=== PATIENT | female | born 1930 | race Caucasian/White ===

== ENCOUNTER → 2016-04-24 | Outpatient (CLI) | payer BC ==
[~2016-04-24] MED LIST: ASCA500 PO; ATV5 PO; AZIT500T26 PO; CHOL100027 PO; CLTP PO; CSPOPS OP; DORZ1SOL6 OPB; ESCI10TA17 PO; IVIG IV.; LATA0.009 OP; LATA0.5S OPB; LEVO-217 PO; LEVO75TA5 PO; LORA-741 PO; MULT-506 PO; MULTTAB58 PO; NAPR1TAB9 PO; OXYC1TAB3 PO; SENN-65 PO; [UNRECOGNIZED DRUG - OTHER] IV
[2016-04-24 14:35] LABS: BASO ABS # 0.04 K/uL (0-0.2); COMPLETE YES; HEMATOCRIT 31.8 % (37-47); IG% 0.3 %; LYMPH % 27.7 %; LYMPH ABS # 1.07 K/uL (1.2-3.4); MEAN CELL VOLUME 97.8 fL (80-100); MEAN CORPUSCULAR HEMOGLOBIN 33.2 pg (25-34); MEAN PLATELET VOLUME 9.4 fL (7.4-10.4); MONO % 25.9 %; NEUT % 45.1 %; PLATELET COUNT 139 K/uL (130-400); RED BLOOD COUNT 3.25 M/uL (4.2-5.4); WHITE BLOOD COUNT 3.86 K/uL (4.8-10.8)
[2016-04-24 15:12] LABS: ALT/SGPT 23 U/L (12-78); AST/SGOT 30 U/L (15-37); BLOOD UREA NITROGEN 16 mg/dl (7-18); BUN/CREATININE RATIO 23.9 (10-20); CALCIUM 9.8 mg/dl (8.5-10.1); CARBON DIOXIDE 26 mmol/L (21-32); CHLORIDE 105 mmol/L (98-107); CREATININE 0.68 mg/dl (0.60-1.20); GLUCOSE 96 mg/dl (70-99); POTASSIUM 3.9 mmol/L (3.5-5.1); SODIUM 140 mmol/L (136-145)
[2016-04-24 15:45] LABS: ALB/GLOB RATIO 0.7 (0.9-2); ALKALINE PHOSPHATASE 152 U/L (45-117); IMMUNOGLOBULN A < 7.8 mg/dL (70-400)
--- NOTE | 2016-04-28 11:37 | CODING QUERY NO DIAGNOSIS ---
: 1930 TREATMENT RENDERED WITHOUT A DIAGNOSIS To promote full compliance with coding requirements relating to patient care, physician participation is requested in all cases of stabilizing machine operator uncertainty. Please assist us with providing a diagnosis/symptom for the test(s) below: A diagnosis/symptom was not documented on your Order. A valid diagnosis/symptom is required to bill all insurances. Please remember that we are unable to code a diagnosis of rule out, probable, possible, questionable, or suspected. Tests that require a diagnosis: * CBC WITH AUTO DIFFER DOS: 04/24/16 DIAGNOSIS: * COMPREHENSIVE METABO DOS: 04/24/16 DIAGNOSIS: * IMMUNOGLOBULIN G,A,M DOS: 04/24/16 DIAGNOSIS: * LDH DOS: 04/24/16 DIAGNOSIS: Provider Signature: Date: Thank you Dana Mota Health Information Management Once completed, please kindly fax back to [phone] For questions please call [phone]
== END | disposition home or self-care (01) ==
LOC: C.LAB1850 13:02
PROVIDERS: ATTEND Internal Medicine Hematology & Oncology
DX: C88.0 Waldenstrom macroglobulinemia (principal)

== ENCOUNTER → 2016-07-17 | Outpatient (CLI) | payer BC ==
[2016-07-17 15:20] LABS: THYROID STIMULATING HORMONE 0.985 uIu/ml (0.300-4.500)
[2016-07-17 16:00] LABS: LYME DISEASE AB IGM NEG (NEG)
[2016-07-17 16:02] LABS: LYME DISEASE AB IGG NEG (NEG)
--- NOTE | 2016-07-21 14:25 | CODING QUERY MEDICAL NECESSITY ---
SUPPORTING DIAGNOSIS NEEDED A supporting diagnosis is required for the test/procedure performed on this patient in order for us to be reimbursed by the patient's insurance. Please provide a supporting diagnosis for the following test/procedure listed below next to the test name along with your signature. *If there is no additional diagnosis for this patient that would support the following test/procedure please document that below next to the test/procedure. Test(s)/Procedure(s) that require a supporting diagnosis: * VITAMIN D 25-HYDROXY DIAGNOSIS: * VITAMIN B-12 LEVEL DIAGNOSIS: * DOS: 07/17/16 Provider Signature: Date: Thank you Crystal Cobb Health Information Management Once completed, please kindly fax back to [phone] For questions please call [phone]
== END | disposition home or self-care (01) ==
LOC: C.LAB1850 13:41
PROVIDERS: ATTEND Internal Medicine
DX: R42 Dizziness and giddiness (principal); M62.81 Muscle weakness (generalized)

== ENCOUNTER → 2016-07-31 | Outpatient (CLI) | payer BC ==
--- NOTE | 2016-07-31 13:38 | DIAGNOSTIC IMAGING REPORT ---
Brain MRI WITHOUT CONTRAST HISTORY: Mental status change WALDENSTROM'S MACROGLOBULINEMIA TECHNIQUE: Multiplanar multisequence MRI of the brain was performed without the use of contrast. COMPARISON STUDY: 11/02/2009 FINDINGS: There are no areas of restricted diffusion to suggest acute infarction. The midline structures are intact. The paranasal sinuses are clear. The mastoid air cells are clear. The ventricles and sulci are within normal limits for age. There is no mass, hematoma, midline shift. The major vascular flow-voids at the skull base are well maintained. Foci of increased signal within the periventricular and deep white matter regions are stable. No significant postcontrast enhancement. IMPRESSION: Chronic change. Age-related change. No acute process. Electronically signed by: Tru Breaux M.D. 07/31/2016 1:36 PM Dictated Date/Time: 07/31/2016 1:31 PM
== END | disposition home or self-care (01) ==
LOC: C.OPENMRI 12:11
PROVIDERS: ATTEND Internal Medicine
DX: C88.0 Waldenstrom macroglobulinemia (principal)

== ENCOUNTER 2016-10-04 05:01 | Emergency (ER) | payer BC ==
[~2016-10-04] VITALS: Ht 165.1 cm; Wt 60.0 kg
[~2016-10-04 05:01] MED LIST changes: -AZIT500T26 PO; -DORZ1SOL6 OPB; -ESCI10TA17 PO; -LATA0.5S OPB; -LEVO75TA5 PO; -LORA-741 PO; -MULT-506 PO; -NAPR1TAB9 PO; -OXYC1TAB3 PO; -[UNRECOGNIZED DRUG - OTHER] IV
[2016-10-04 05:12] VITALS: TEMP 36.4; Ht 165.1 cm; Wt 60.0 kg
[2016-10-04] MEDS ORDERED: KETOROLAC TROMETHAMINE 30 MG/ML VIAL IV STA (05:41)
--- NOTE | 2016-10-04 05:48 | EMERGENCY ROOM VISIT NOTE ---
History Report prepared by Gopal: Joshua Sharif Under the Supervision of: Dr. Chanda Fitch D.O. First contact with patient: 05:02 Chief Complaint: HIP PAIN Stated Complaint: HIP PAIN History of Present Illness The patient is a 86 year old female who presents to the Emergency Room via EMS with complaints of severe right hip pain starting about 2 days ago and worsening tonight. She reports worsening pain with ambulation but has been walking on the leg. She rolled over in her bed tonight and had worsening of her pain soon after. She took Lorazepam and 2 Tylenol with some relief. She received 3 mg Morphine by EMS with some relief. She denies any recent falls. She had a hip replacement about 5-6 years ago. The patient denies chest pain, shortness of breath, abdominal pain, upper extremity pain, or any other complaints. She had routine blood work done yesterday as a part of Non-Hodgkin' s lymphoma treatment. Source of History: patient Onset: 2 days ago Position: other (right hip) Symptom Intensity: severe Timing: worsening Modifying Factors (Worsening): other (ambulation) Modifying Factors (Relieving): other (Lorazepam, 2 Tylenol, and Morphine with some relief) Associated Symptoms: No chest pain, No SOB, No abdominal pain Review of Systems See HPI for pertinent positives & negatives. A total of 10 systems reviewed and were otherwise negative. Past Medical & Surgical Surgical Problems: (1) History of right hip replacement Family History Patient reports no known family medical history. Social History Marital Status: Housing Status: lives with family Occupation Status: retired Current/Historical Medications Scheduled Ascorbic Acid (Vitamin C), 500 MG PO DAILY Azithromycin (Zithromax), 1,000 MG PO WK Dorzolamide Hcl-Timolol Maleat (Cosopt Oph), 1 DROPS OPB BID Escitalopram (Lexapro), 20 MG PO DAILY Latanoprost (Xalatan 0.005% Oph Opal), 1 DROPS OPB HS Levothyroxine Sodium (Levothyroxine Sodium), 1 TAB PO DAILY Multivitamin (Multivitamin), 1 TAB PO DAILY [human ig iv], 1 DOSE IV MONTHLY Scheduled PRN Lorazepam (Ativan), 1.5 TAB PO DAILY PRN for Anxiety Naproxen (Aleve), 220 MG PO BID PRN for Pain Oxycodone Ir (Roxicodone Ir), 1 TAB PO Q4H PRN for Severe Pain Allergies Coded Allergies: Iodinated Diagnostic Agents (Verified Allergy, Intermediate, HIVES, ) Physical Exam Vital Signs Date Time Temp Pulse Resp B/P (MAP) Pulse Ox O2 Delivery O2 Flow Rate FiO2 10/04/16 06:49 72 20 104/70 93 10/04/16 06:06 78 20 106/55 93 Room Air 10/04/16 05:12 36.4 74 20 142/62 98 Room Air Physical Exam HEENT: Head - normocephalic and atraumatic Pupils are equal, round, and reactive to light. Extraocular eye muscles are intact, and sclera are anicteric. Nose - moist nasal mucosa without discharge. Mouth - moist buccal mucosa. Oropharynx is nonerythematous and there is no tonsillar exudate or edema noted. Neck: Supple; no JVD, nuchal rigidity, cervical lymphadenopathy. Heart: Regular rate and rhythm. There is a normal S1 and S2 with no murmurs, clicks, or gallops appreciated. Lungs: Clear to auscultation bilaterally with no wheezes, rales, or rhonchi. Abdomen: Soft, completely nontender, nondistended, with good bowel sounds. There are no palpable pulsatile masses or hepatosplenomegaly. There is no guarding, rigidity, or rebound noted. Extremities: No evidence of cyanosis, clubbing, or edema. There are easily palpable peripheral pulses. Pain with palpation over the right buttocks and right hip. Patient can initiate flexion at the right hip but it is painful. Skin: Pale, warm and dry with good turgor and no rashes. Medical Decision & Procedures ER Provider Diagnostic Interpretation: X-ray results as stated below per interpretation by me: HIP X-RAY Hardware appears to be in good position, no obvious fracture. Medications Administered Medications (Trade) Dose Ordered Sig/Nabil Route Start Time Stop Time Status Last Admin Dose Admin Ketorolac Tromethamine (Toradol Inj) 30 mg NOW STAT IV 10/04/16 05:41 10/04/16 05:42 DC 10/04/16 05:45 30 MG Procedure Toradol Inj 30 mg IV ED Course 0502: Past medical records reviewed. The patient was evaluated in room B02. A complete history and physical exam was performed. The patient declined wanting anything more for pain at this time. She had morphine by EMS. She went for plain x-rays of the right hip as described above. 0536: I went over the x-ray results with the patient. She will do an ambulatory trial. 0541: Toradol Inj 30 mg IV 0634: Upon reevaluation, the patient is feeling better. I discussed findings and results with her. She verbalized agreement of the treatment plan. She was discharged home. Medical Decision The patient presents to the Emergency Room with complaints of right hip pain. Differential diagnosis includes but is not limited to hip fracture, prosthetic hip dislocation, dislocated hardware. Her labs from yesterday showed white blood cell count of 3.7, hemoglobin 11.1 which is baseline for her, glucose of 88, normal renal function and LFTs, albumin low at 3.2. I attest that I have personally reviewed the patient's current medication list. Blood Pressure Screening: Patient was found to have a slightly elevated blood pressure due to circumstances. I do not believe that the patient requires hypertension monitoring. The patient had plain x-rays of the right hip. There were no obvious fractures and hardware appears to be in good position. After some time, the patient was able to get up and ambulate. She continues to describe some discomfort but not as severe as it was. The patient was given a prescription for OxyIR to use every 6 hours as needed for pain. Of asked her to follow-up with Dr. Barahona with regards to the hip pain. Impression Primary Impression: Right hip pain Scribe Attestation The scribe's documentation has been prepared under my direction and personally reviewed by me in its entirety. I confirm that the note above accurately reflects all work, treatment, procedures, and medical decision making performed by me. Departure Information Dispostion Home / Self-Care Prescriptions Oxycodone Ir (Roxicodone Ir) 5 Mg Tab 1 TAB PO Q4H Y for Severe Pain, #20 TAB Prov: Chanda Fitch D.O. 10/04/16 Referrals Rafa Haque M.D. (PCP) Sami Barahona, DO Forms HOME CARE DOCUMENTATION FORM, IMPORTANT VISIT INFORMATION, WORK / SCHOOL INSTRUCTIONS Patient Instructions My [facility] Additional Instructions Rest. Limit ambulation. Follow up closely with Dr. Barahona. Use tylenol or motrin for pain
[2016-10-04] MEDS ORDERED: NAPR1TAB9 PO (06:36)
[2016-10-04] MEDS ORDERED: ESCI10TA17 PO (06:37)
[2016-10-04] MEDS ORDERED: AZIT500T26 PO (06:37)
[2016-10-04] MEDS ORDERED: DORZ1SOL6 OPB (06:37)
[2016-10-04] MEDS ORDERED: OXYC1TAB3 PO (06:40)
[2016-10-04] MEDS ORDERED: LEVO75TA5 PO (06:43)
[2016-10-04] MEDS ORDERED: [UNRECOGNIZED DRUG - OTHER] IV (06:43)
[2016-10-04] MEDS ORDERED: MULT-506 PO (06:45)
[2016-10-04] MEDS ORDERED: ASCA500 PO (06:45)
[2016-10-04] MEDS ORDERED: LORA-741 PO (06:46)
[2016-10-04] MEDS ORDERED: LATA0.5S OPB (06:46)
[2016-10-04 06:49] VITALS: BP 104/70; PULSE 72; O2SAT 93
--- NOTE | 2016-10-04 07:37 | DIAGNOSTIC IMAGING REPORT ---
RIGHT HIP 2 VIEWS CLINICAL HISTORY: Right hip pain. FINDINGS: AP and frog-leg portable views of the right hip are correlated with skeletal survey dated 07/06/2014. The skeletal structures are osteopenic. A bipolar right hip arthroplasty is in near anatomic alignment. There is no periprosthetic lucency identified. No fracture is seen. The visualized bony pelvis appears intact. The overlying soft tissues are within normal limits. Pelvic phleboliths are observed. IMPRESSION: There is no radiographic evidence of right hip fracture noting an arthroplasty in near anatomic alignment. Electronically signed by: Jay Barajas M.D. 10/04/2016 7:35 AM Dictated Date/Time: 10/04/2016 7:34 AM
== END 2016-10-04 06:49 | disposition home or self-care (01) ==
LOC: C.EDB 05:01 → EDBD 05:01 → C.EDB 06:49
DX: M25.551 Pain in right hip (principal); C85.90 Non-Hodgkin lymphoma, unspecified, unspecified site; Z96.641 Presence of right artificial hip joint

== ENCOUNTER → 2016-11-02 | Outpatient (CLI) | payer BC ==
[~2016-11-02] MED LIST changes: -ATV5 PO; +AZIT500T26 PO; -CHOL100027 PO; -CLTP PO; -CSPOPS OP; +DORZ1SOL6 OPB; +ESCI10TA17 PO; -IVIG IV.; -LATA0.009 OP; +LATA0.5S OPB; -LEVO-217 PO; +LEVO75TA5 PO; +LORA-741 PO; +MULT-506 PO; -MULTTAB58 PO; +NAPR1TAB9 PO; +OXYC1TAB3 PO; -SENN-65 PO; +[UNRECOGNIZED DRUG - OTHER] IV
[2016-11-02 15:34] LABS: BASO % 0.8 %; BASO ABS # 0.03 K/uL (0-0.2); COMPLETE YES; HEMATOCRIT 31.1 % (37-47); LYMPH % 29.7 %; LYMPH ABS # 1.13 K/uL (1.2-3.4); MEAN CORPUSCULAR HEMOGLOBIN 34.7 pg (25-34); MEAN PLATELET VOLUME 8.6 fL (7.4-10.4); MONO % 28.3 %; NEUT % 41.2 %; PLATELET COUNT 137 K/uL (130-400); RED BLOOD COUNT 3.14 M/uL (4.2-5.4); WHITE BLOOD COUNT 3.81 K/uL (4.8-10.8)
[2016-11-02 16:06] LABS: ALT/SGPT 25 U/L (12-78); BLOOD UREA NITROGEN 17 mg/dl (7-18); BUN/CREATININE RATIO 19.8 (10-20); CALCIUM 9.7 mg/dl (8.5-10.1); CARBON DIOXIDE 28 mmol/L (21-32); CHLORIDE 104 mmol/L (98-107); CREATININE 0.87 mg/dl (0.60-1.20); GLUCOSE 82 mg/dl (70-99); SODIUM 136 mmol/L (136-145)
[2016-11-02 16:38] LABS: ALB/GLOB RATIO 0.6 (0.9-2); ALKALINE PHOSPHATASE 158 U/L (45-117); AST/SGOT 35 U/L (15-37); IMMUNOGLOBULN A < 7.8 mg/dL (70-400)
[2016-11-06 16:36] LABS: ALBUMIN 3.6 G/DL (3.8-4.8); FREE KAPPA 168.5 MG/L (3.3-19.4); FREE KAPPA/LAMBDA RATIO 70.21 (0.26-1.65); FREE LAMBDA 2.4 MG/L (5.7-26.3); GAMMA GLOBULIN 2.4 G/DL (0.8-1.7); MONOCLONAL PROTEIN BAND 1 2.1 G/DL (NOT DETECTED); TOTAL PROTEIN 7.8 G/DL (6.2-8.3)
== END | disposition home or self-care (01) ==
LOC: C.LAB1850 14:38
PROVIDERS: ATTEND Internal Medicine Hematology & Oncology
DX: C88.0 Waldenstrom macroglobulinemia (principal)

== ENCOUNTER 2016-12-23 20:38 | Emergency (ER) | payer BC ==
[~2016-12-23] VITALS: Ht 165.1 cm; Wt 67.7 kg
[2016-12-23 20:51] VITALS: TEMP 37; Ht 165.1 cm; Wt 67.7 kg
[2016-12-23] MEDS ORDERED: MoRPHine SULFATE 4 MG/ML 1 ML CARP\\VIAL IV STA ×2 (21:06→22:23)
[2016-12-23 21:23] LABS: BASO % 0.6 %; BASO ABS # 0.02 K/uL (0-0.2); COMPLETE YES; HEMATOCRIT 29.8 % (37-47); IG% 0.6 %; LYMPH ABS # 1.12 K/uL (1.2-3.4); MEAN CELL VOLUME 94.3 fL (80-100); MEAN CORPUSCULAR HEMOGLOBIN 32.3 pg (25-34); MEAN CORPUSCULAR HGB CONC 34.2 g/dl (32-36); MEAN PLATELET VOLUME 8.8 fL (7.4-10.4); MONO % 20.4 %; NEUT % 44.4 %; PLATELET COUNT 137 K/uL (130-400); RED BLOOD COUNT 3.16 M/uL (4.2-5.4); WHITE BLOOD COUNT 3.29 K/uL (4.8-10.8)
[2016-12-23 21:32] LABS: PROTHROMBIN TIME (PATIENT) 10.7 SECONDS (9.0-12.0)
[2016-12-23 21:39] LABS: BUN/CREATININE RATIO 24.6 (10-20); CALCIUM 9.2 mg/dl (8.5-10.1); CREATININE 0.7 mg/dl (0.60-1.20); POTASSIUM 3.8 mmol/L (3.5-5.1)
--- NOTE | 2016-12-23 22:19 | DIAGNOSTIC IMAGING REPORT ---
LEFT PELVIS/UNILATERAL HIP 2-3VIEWS CLINICAL HISTORY: left hip pain trauma COMPARISON: None. DISCUSSION: Angled intertrochanteric fracture left hip. Possible additional subcapital fracture. Severe degenerative change left hip. There is no evidence for soft tissue swelling. IMPRESSION: 1. Angled intertrochanteric fracture left hip. 2. Potential partial subcapital fracture. 3. Severe degenerative change left hip. The above report was generated using voice recognition software. It may contain grammatical, syntax or spelling errors. Electronically signed by: Tru Breaux M.D. 12/23/2016 10:18 PM Dictated Date/Time: 12/23/2016 10:17 PM
--- NOTE | 2016-12-23 22:20 | DIAGNOSTIC IMAGING REPORT ---
CHEST ONE VIEW PORTABLE CLINICAL HISTORY: hip fx trauma COMPARISON STUDY: 02/26/2013 FINDINGS: Mild stable cardiomegaly. Lungs are clear. Minimal atelectasis left base. IMPRESSION: Mild cardiomegaly. Minimal atelectasis left base. The above report was generated using voice recognition software. It may contain grammatical, syntax or spelling errors. Electronically signed by: Tru Breaux M.D. 12/23/2016 10:18 PM Dictated Date/Time: 12/23/2016 10:18 PM
--- NOTE | 2016-12-23 22:49 | DIAGNOSTIC IMAGING REPORT ---
LEFT ELBOW MIN 3 VIEWS ROUTINE CLINICAL HISTORY: eval for fx trauma COMPARISON: None. DISCUSSION: The bones and joint spaces appear intact. There is no evidence of fracture, dislocation or bony disease. There is no evidence for soft tissue swelling. IMPRESSION: Negative study. The above report was generated using voice recognition software. It may contain grammatical, syntax or spelling errors. Electronically signed by: Tru Breaux M.D. 12/23/2016 10:47 PM Dictated Date/Time: 12/23/2016 10:45 PM
--- NOTE | 2016-12-23 23:01 | DIAGNOSTIC IMAGING REPORT ---
HEAD WITHOUT CONTRAST (CT) CT DOSE: 537.48 mGy.cm HISTORY: Mental status change. Trauma. eval for bleed TECHNIQUE: Multiaxial CT images of the head were performed without the use of intravenous contrast. A dose lowering technique was utilized adhering to the principles of ALARA. Comparison: None. Findings: Left-sided subdural hematoma. This is a maximum thickness of 1.2 cm. There is probably a very subtle midline shift to the right of 2 mm. There are findings of age-related chronic small vessel change. Basal cisterns are unremarkable. Osseous structures appear intact. Impression: 1. 1.2 cm left-sided subdural hematoma with less prominent findings seen towards the left frontal region 2. No significant parenchymal hemorrhage. 3. Slight midline shift to the right. The above report was generated using voice recognition software. It may contain grammatical, syntax or spelling errors. Electronically signed by: Tru Breaux M.D. 12/23/2016 11:00 PM Dictated Date/Time: 12/23/2016 10:56 PM
[2016-12-23 23:10] LABS: URINE APPEARANCE CLEAR (CLEAR); URINE BILIRUBIN NEG (NEG); URINE COLOR YELLOW; URINE EPITHELIAL CELL AUTO 20-30 /lpf (0-5); URINE NITRITE NEG (NEG); URINE PH 6.5 (4.5-7.5); URINE SPECIFIC GRAVITY 1.025 (1.000-1.030); UROBILINOGEN NEG (NEG); ZZURINE CULT IF INDIC CATH NO
[2016-12-23 23:17] LABS: MANUAL MICROSCOPIC REQUIRED? NO; REVIEW REQ? NO
[2016-12-23] MEDS ORDERED: HYDROmorphone INJ 1 MG/ML SYR IV STA (23:21)
[2016-12-23] MEDS ORDERED: HYDROmorphone INJ 0.5 MG/0.5 ML SYR ONE (23:25)
[2016-12-24 00:29] VITALS: BP 137/61; PULSE 87; O2SAT 94
--- NOTE | 2016-12-24 01:53 | EMERGENCY ROOM VISIT NOTE ---
History Report prepared by Gopal: Rik Kwan Under the Supervision of: Dr. Zay Davis M.D. First contact with patient: 20:51 Chief Complaint: FALL Stated Complaint: FALL/ LF HIP PAIN W/DEFORMITY History of Present Illness The patient is a 86 year old female who presents to the Emergency Room with complaints of a sudden fall that occurred prior to arrival. The patient rates her discomfort as an 8/10 in severity. She states that she was experiencing lightheadedness and lost her balance causing her to fall. The patient states that she fell on concrete floor hitting her left hip, elbow, and head. She denies any syncopal episode. Per nursing, the patient was brought into the ED via EMS and was given Fentanyl on her way here. The patient states that her orthopedics doctor is Dr. Barahona and PCP is Dr. Haque. She denies tripping, LOC, neck pain, head pain, and taking a blood thinner. Source of History: patient Onset: prior to arrival Position: leg (left) Symptom Intensity: 8/10 Quality: sharp Timing: other (sudden) Modifying Factors (Worsening): movement Modifying Factors (Relieving): other (Fentanyl) Associated Symptoms: No LOC, No headache, No neck pain Note: Associated symptom: lightheadedness Review of Systems See HPI for pertinent positives & negatives. A total of 10 systems reviewed and were otherwise negative. Past Medical & Surgical Surgical Problems: (1) History of right hip replacement Family History Patient reports no known family medical history. Social History Smoking Status: Never Smoker Marital Status: Housing Status: lives with family Occupation Status: retired Current/Historical Medications Scheduled Ascorbic Acid (Vitamin C), 500 MG PO DAILY Azithromycin (Zithromax), 500 MG PO TW Dorzolamide Hcl-Timolol Maleat (Cosopt Oph), 1 DROPS OPB BID Escitalopram (Lexapro), 20 MG PO DAILY Latanoprost (Xalatan 0.005% Oph Opal), 1 DROPS OPB HS Levothyroxine Sodium (Levothyroxine Sodium), 1 TAB PO DAILY Multivitamin (Multivitamin), 1 TAB PO DAILY [human ig iv], 1 DOSE IV MONTHLY Scheduled PRN Lorazepam (Ativan), 0.5 TAB PO HS PRN for Anxiety Naproxen (Aleve), 220 MG PO BID PRN for Pain Oxycodone Ir (Roxicodone Ir), 1 TAB PO Q4H PRN for Severe Pain Allergies Coded Allergies: Iodinated Diagnostic Agents (Verified Allergy, Intermediate, HIVES, 12/23/16 ) Physical Exam Vital Signs Date Time Temp Pulse Resp B/P (MAP) Pulse Ox O2 Delivery O2 Flow Rate FiO2 12/24/16 00:29 87 18 137/61 94 12/23/16 23:21 90 18 147/74 92 Room Air 12/23/16 22:31 87 20 157/76 93 Room Air 12/23/16 21:38 86 12/23/16 20:51 37.0 88 20 145/75 93 Room Air Physical Exam Constitutional: Vital signs reviewed. Eyes: Pupils are equal round reactive to light. Conjunctiva are noninjected. ENT: Pharynx is clear without erythema or exudate. Mucous membranes are moist. Neck supple without meningeal signs. No midline tenderness to C-Spine. Respiratory: Clear to auscultation bilaterally. Breath sounds are equal bilaterally. Cardiovascular: Regular rate and rhythm. No rubs or gallops. GI: Soft, nondistended and nontender. Bowel sounds are present. Musculoskeletal: Left hip tenderness. normal distal pulses. No tenderness to distal hip. Bruising to left elbow without bony tenderness to left arm. Integumentary: No cyanosis. Neurological: The patient is awake and alert. No focal deficits. Psychiatric: Normal affect. Medical Decision & Procedures ER Provider Diagnostic Interpretation: Radiology results as stated below per my review and the radiologist's interpretation: LEFT PELVIS/UNILATERAL HIP 2-3VIEWS CLINICAL HISTORY: left hip pain trauma COMPARISON: None. DISCUSSION: Angled intertrochanteric fracture left hip. Possible additional subcapital fracture. Severe degenerative change left hip. There is no evidence for soft tissue swelling. IMPRESSION: 1. Angled intertrochanteric fracture left hip. 2. Potential partial subcapital fracture. 3. Severe degenerative change left hip. The above report was generated using voice recognition software. It may contain grammatical, syntax or spelling errors. Electronically signed by: Tru Breaux M.D. 12/23/2016 10:18 PM Dictated Date/Time: 12/23/2016 10:17 PM CHEST ONE VIEW PORTABLE CLINICAL HISTORY: hip fx trauma COMPARISON STUDY: 02/26/2013 FINDINGS: Mild stable cardiomegaly. Lungs are clear. Minimal atelectasis left base. IMPRESSION: Mild cardiomegaly. Minimal atelectasis left base. The above report was generated using voice recognition software. It may contain grammatical, syntax or spelling errors. Electronically signed by: Tru Breaux M.D. 12/23/2016 10:18 PM Dictated Date/Time: 12/23/2016 10:18 PM HEAD WITHOUT CONTRAST (CT) CT DOSE: 537.48 mGy.cm HISTORY: Mental status change. Trauma. eval for bleed TECHNIQUE: Multiaxial CT images of the head were performed without the use of intravenous contrast. A dose lowering technique was utilized adhering to the principles of ALARA. Comparison: None. Findings: Left-sided subdural hematoma. This is a maximum thickness of 1.2 cm. There is probably a very subtle midline shift to the right of 2 mm. There are findings of age-related chronic small vessel change. Basal cisterns are unremarkable. Osseous structures appear intact. Impression: 1. 1.2 cm left-sided subdural hematoma with less prominent findings seen towards the left frontal region 2. No significant parenchymal hemorrhage. 3. Slight midline shift to the right. The above report was generated using voice recognition software. It may contain grammatical, syntax or spelling errors. Electronically signed by: Tru Breaux M.D. 12/23/2016 11:00 PM Dictated Date/Time: 12/23/2016 10:56 PM LEFT ELBOW MIN 3 VIEWS ROUTINE CLINICAL HISTORY: eval for fx trauma COMPARISON: None. DISCUSSION: The bones and joint spaces appear intact. There is no evidence of fracture, dislocation or bony disease. There is no evidence for soft tissue swelling. IMPRESSION: Negative study. The above report was generated using voice recognition software. It may contain grammatical, syntax or spelling errors. Electronically signed by: Tru Breaux M.D. 12/23/2016 10:47 PM Dictated Date/Time: 12/23/2016 10:[address] C SPINE: No acute fracture. Areas of listhesis most prominent at C3 on C4 likely degenerative. Thyroid has a heterogenous appearance Lack of soft tissue windows limits evaluation. Query underlying nodules. Radiologist: Edmond Raza M.D. Laboratory Results 12/23/16 21:13 Red Blood Count 3.16, Mean Corpuscular Volume 94.3, Mean Corpuscular Hemoglobin 32.3, Mean Corpuscular Hemoglobin Concent 34.2, Mean Platelet Volume 8.8, Neutrophils (%) (Auto) 44.4, Lymphocytes (%) (Auto) 34.0, Monocytes (%) (Auto) 20.4, Eosinophils (%) (Auto) 0.0, Basophils (%) (Auto) 0.6, Neutrophils # (Auto ) 1.46, Lymphocytes # (Auto) 1.12, Monocytes # (Auto) 0.67, Eosinophils # (Auto ) 0.00, Basophils # (Auto) 0.02 12/23/16 21:13 Test 12/23/16 21:13 12/23/16 22:53 White Blood Count 3.29 K/uL (4.8-10.8) Red Blood Count 3.16 M/uL (4.2-5.4) Hemoglobin 10.2 g/dL (12.0-16.0) Hematocrit 29.8 % (37-47) Mean Corpuscular Volume 94.3 fL (80-100) Mean Corpuscular Hemoglobin 32.3 pg (25-34) Mean Corpuscular Hemoglobin Concent 34.2 g/dl (32-36) Platelet Count 137 K/uL (130-400) Mean Platelet Volume 8.8 fL (7.4-10.4) Neutrophils (%) (Auto) 44.4 % Lymphocytes (%) (Auto) 34.0 % Monocytes (%) (Auto) 20.4 % Eosinophils (%) (Auto) 0.0 % Basophils (%) (Auto) 0.6 % Neutrophils # (Auto) 1.46 K/uL (1.4-6.5) Lymphocytes # (Auto) 1.12 K/uL (1.2-3.4) Monocytes # (Auto) 0.67 K/uL (0.11-0.59) Eosinophils # (Auto) 0.00 K/uL (0-0.5) Basophils # (Auto) 0.02 K/uL (0-0.2) RDW Standard Deviation 48.6 fL (36.4-46.3) RDW Coefficient of Variation 13.9 % (11.5-14.5) Immature Granulocyte % (Auto) 0.6 % Immature Granulocyte # (Auto) 0.02 K/uL (0.00-0.02) Prothrombin Time 10.7 SECONDS (9.0-12.0) Prothromb Time International Ratio 1.0 (0.9-1.1) Activated Partial Thromboplast Time 26.7 SECONDS (21.0-31.0) Partial Thromboplastin Ratio 1.0 Anion Gap 7.0 mmol/L (3-11) Est Creatinine Clear Calc Drug Dose 53.8 ml/min Estimated GFR () 92.2 Estimated GFR (Non- 79.6 BUN/Creatinine Ratio 24.6 (10-20) Calcium Level 9.2 mg/dl (8.5-10.1) Troponin I 0.039 ng/ml (0-0.045) Urine Color YELLOW Urine Appearance CLEAR (CLEAR) Urine pH 6.5 (4.5-7.5) Urine Specific [place] 1.025 (1.000-1.030) Urine Protein TRACE (NEG) Urine Glucose (UA) NEG (NEG) Urine Ketones NEG (NEG) Urine Occult Blood NEG (NEG) Urine Nitrite NEG (NEG) Urine Bilirubin NEG (NEG) Urine Urobilinogen NEG (NEG) Urine Leukocyte Esterase NEG (NEG) Urine WBC (Auto) 1-5 /hpf (0-5) Urine RBC (Auto) 0-4 /hpf (0-4) Urine Hyaline Casts (Auto) 1-5 /lpf (0-5) Urine Epithelial Cells (Auto) 20-30 /lpf (0-5) Urine Bacteria (Auto) NEG (NEG) Laboratory results as reviewed by me. Medications Administered Medications (Trade) Dose Ordered Sig/Nabil Route Start Time Stop Time Status Last Admin Dose Admin Morphine Sulfate (MoRPHine SULFATE INJ) 4 mg NOW STAT IV 12/23/16 21:06 12/23/16 21:08 DC 12/23/16 21:12 4 MG Morphine Sulfate (MoRPHine SULFATE INJ) 4 mg NOW STAT IV 12/23/16 22:23 12/23/16 22:24 DC 12/23/16 22:30 4 MG Hydromorphone HCl (Dilaudid Inj) 0.5 mg STK-MED ONCE .ROUTE 12/23/16 23:25 12/23/16 23:26 DC 12/23/16 23:28 0.5 MG ECG Indication: weakness Rate (beats per minute): 88 Rhythm: sinus rhythm Findings: 1st degree AV block, other (Limited interpretation due to motion artifact) ED Course 2053: The patient was evaluated in room B08. A complete history and physical exam was performed. 2105: Ordered Morphine Sulfate 4 mg IV. 2217: I reevaluated the patient and she has worsening pain. 3: Ordered Morphine Sulfate 4 mg IV. 2224: I discussed the patients case with Dr. Dove, [facility] Hospitalist. He understands the patients condition and agrees to accept the patient. The patient will be further evaluated. 2240: I discussed the patients case with Dr. Gonzalez, [facility] Orthopedics. He states that the patient should be kept in PO and he will see her tomorrow. 2259: I reevaluated the patient and discussed her subdural. 2325: I discussed the patient's case with Dr. Basilio Del Real, [place] trauma. He agrees to accept the patient. The patient will be going to a SICU bed and will be transferred via [facility]. Ordered Dilaudid Injection 0.5 mg IV. Medical Decision This is an 86-year-old female presents with injuries after fall. Differential diagnosis includes hip fracture, dislocation, intracranial hemorrhage, skull fracture, concussion. I did perform a limited focused review of portions of the patient's old chart on the electronic medical record. The patient has had a recent visit on October 04 for right hip pain. She was treated with Toradol. Her x ray showed no acute process and she was discharged home. I did evaluate the patient as noted above. The patient was placed on a continuous monitoring analyst. The patient has a hip fracture on physical examination. I did treat her with IV morphine several times. She was also given Dilaudid IV she had worse pain after x-rays. I did order and personally review the patient's 12-lead EKG and x-rays as described above. She does have a left hip fracture. I did order and review the patient's blood work as noted in the electronic medical record. I did call the hospitalist for admission. I did order a CT of the head and cervical spine. I did review the images myself as well as the radiology report as described above. She has a subdural hematoma. As we do not have a neurosurgeon here she will need to be transferred. I did discuss the case with the trauma surgeon at [facility] who accepted the patient for transfer. She was transferred via helicopter. She remained neurologically intact and stable. I did discuss test results with the patient and her family. Medication Reconcilliation Current Medication List: was personally reviewed by me Blood Pressure Screening Patient's blood pressure: Elevated blood pressure Blood pressure disposition: Referred to PCP Consults Time Called: 2223 Consulting Physician: Dr. Dove [facility] Hospitalist Returned Call: [phone] I discussed the patients case with Dr. Dove [facility] Hospitalist. He understands the patients condition and agrees to accept the patient. The patient will be further evaluated. Additional Consults: Time Called: 2239 Consulted Physician: Dr. Gonzalez [facility] Orthopedics Returned Call: [phone] Additional Comments: I discussed the patients case with Dr. Gonzalez [facility] Orthopedics. He states that the patient should be kept in PO and he will see her tomorrow. Time Called: 2324 Consulted Physician: Gurvinder Bradyhey trauma Returned Call: 2324 Additional Comments: I discussed the patient's case with Dr. Basilio Del Real, [place] trauma. He agrees to accept the patient. The patient will be going to a SICU bed and will be transferred via [facility]. Impression Primary Impression: Hip fracture, left Additional Impressions: Fall Subdural hematoma Scribe Attestation The scribe's documentation has been prepared under my direct and personally reviewed by me in its entirety. I confirm that the note above accurately reflects all work, treatment, procedures, and medical decision making performed by me. Departure Information Dispostion Transfer Acute Care Facility Referrals Rafa Haque M.D. (PCP) Patient Instructions My [facility] Problem Qualifiers Primary Impression: Hip fracture, left Encounter type: initial encounter Fracture type: closed Qualified Codes: S72.002A - Fracture of unspecified part of neck of left femur, initial encounter for closed fracture Additional Impressions: Fall Encounter type: initial encounter Qualified Codes: W19.XXXA - Unspecified fall, initial encounter
--- NOTE | 2016-12-24 06:05 | DIAGNOSTIC IMAGING REPORT ---
CERVICAL SPINE W/O CT DOSE: 243.31 mGy.cm HISTORY: Trauma eval for fx TECHNIQUE: Multiaxial CT images of the cervical spine were performed and reformatted in the sagittal and coronal plane without the use of contrast. A dose lowering technique was utilized adhering to the principles of ALARA. COMPARISON: None. FINDINGS: Considerable degenerative disc change. Degenerative anterolisthesis C3 on C4. Degenerative change of vertebral endplates. C1-C2 complex is intact. IMPRESSION: Considerable degenerative change. No acute process. The above report was generated using voice recognition software. It may contain grammatical, syntax or spelling errors. Electronically signed by: Tru Breaux M.D. 12/24/2016 6:04 AM Dictated Date/Time: 12/24/2016 6:03 AM
== END 2016-12-24 00:29 | disposition short-term general hospital (02) ==
LOC: EDBD 20:38 → C.EDB 20:40
DX: S72.002A Fracture of unspecified part of neck of left femur, initial encounter for closed fracture (principal); S06.5X9A Traumatic subdural hemorrhage with loss of consciousness of unspecified duration, initial encounter; W01.0XXA Fall on same level from slipping, tripping and stumbling without subsequent striking against object, initial encounter; Z96.641 Presence of right artificial hip joint; Z79.899 Other long term (current) drug therapy; Z91.041 Radiographic dye allergy status

== ENCOUNTER → 2017-02-07 | Outpatient (CLI) | payer BC ==
[2017-02-22 10:27] LABS: MAGNESIUM 2.4 mg/dl (1.8-2.4); THYROID STIMULATING HORMONE 5.79 uIu/ml (0.300-4.500)
== END | disposition home or self-care (01) ==
LOC: C.LAB 17:05
PROVIDERS: ATTEND Internal Medicine
DX: M62.81 Muscle weakness (generalized) (principal)

== ENCOUNTER → 2017-07-10 | Outpatient (CLI) | payer BC ==
[~2017-07-10] MED LIST changes: -OXYC1TAB3 PO
[2017-07-10 12:37] LABS: BLOOD UREA NITROGEN 19 mg/dl (7-18); CALCIUM 9.7 mg/dl (8.5-10.1); CARBON DIOXIDE 28 mmol/L (21-32); CREATININE 0.71 mg/dl (0.60-1.20); GLUCOSE 85 mg/dl (70-99); SODIUM 137 mmol/L (136-145)
== END | disposition home or self-care (01) ==
LOC: C.LAB1850 10:18
PROVIDERS: ATTEND Internal Medicine
DX: E03.9 Hypothyroidism, unspecified (principal); R60.0 Localized edema